=== PATIENT | male | born 1985 | race African-American/Black ===

== ENCOUNTER 2019-03-15 13:54 | Inpatient (IN) | payer OTHER ==
[2019-03-15 14:34] VITALS: BMI 25.4
--- NOTE | 2019-03-15 14:58 | HP ---
CIWA Score Nausea/Vomitin-Mild Nausea/No Vomiting Muscle Tremors: 3 Anxiety: 3 Agitation: 1-Slight > Activity Paroxysmal Sweats: 1-Minimal Palms Moist Orientation: 0-Oriented Tacttile Disturbances: 2-Mild Itch/Numbness/Burn Auditory Disturbances: 0-None Visual Disturbances: 0-None Headache: 3-Moderate CIWA-Ar Total Score: 14 - Admission Criteria OASAS Guidelines: Admission for Medically Managed Detox: Requires at least one of the followin. CIWA greater than 12 2. Seizures within the past 24 hours 3. Delirium tremens within the past 24 hours 4. Hallucinations within the past 24 hours 5. Acute intervention needed for co occurring medical disorder 6. Acute intervention needed for co occurring psychiatric disorder 7. Severe withdrawal that cannot be handled at a lower level of care (continued vomiting, continued diarrhea, abnormal vital signs) requiring intravenous medication and/or fluids 8. Admitting History and Physical - Admission History Source: Patient Limitations to Obtaining History: No Limitations - Past Medical History Psych: Yes: Anxiety, Depression - Past Surgical History Past Surgical History: Yes: None - Smoking History Smoking history: Current every day smoker Have you smoked in the past 12 months: Yes Aproximately how many cigarettes per day: 10 - Alcohol/Substance Use Hx Alcohol Use: Yes Number of Drinks Daily: 24 (beers) History of Substance Use: reports: Marijuana Date of Last Use: 03/14/19 (PCP) - Social History Usual Living Arrangement: Yes: Other (Homeless) Do you think of yourself as: Declined to answer ADL: Independent History of Recent Travel: No Admission ROS [facility] Chief Complaint: ETOH withdrawal symptoms Allergies/Adverse Reactions: Allergies Allergy/AdvReac Type Severity Reaction Status Date / Time No Known Allergies Allergy Verified 03/15/19 14:25 History of Present Illness: Patient presents to [facility] for ETOH withdrawal symptoms. Patient admitted to [facility] in 09/2014. He reports he started drinking alcohol at age 11, Marijuana at age 10 and PCP 25. Drinks 24 (12) oz beers daily with last drink this morning. Has hx of blackouts, binge drinking, tremors and eye openers. Denies hx of seizures. States he smokes 6-12 blunts and dust daily, with last use last night. Denies PMH. Reports feeling anxious and depressed- denies SI/HI at this time. + suicide attempt in 2017 by excessive drinking. Patient also reports that he was in [facility] ED last night for c/o muscle spasms. Patient does not have discharge papers stating " I threw them out". Quality Control Head called [facility] ED x 2 and was left on hold for 15 minutes. Patient denies chest pain, sob and dizziness and states he was not evaluated for cardiac symptoms. Dr. Avelar aware of above situation. Admitting labs and EKG ordered. On no meds GUNJAN 0.004 urine tox + THC Istop negative Exam Limitations: No Limitations - Ebola screening Have you traveled outside of the country in the last 21 days: No Have you had contact with anyone from an Ebola affected area: No Have you been sick,other than usual withdrawal symptoms: No Do you have a fever: No - Review of Systems Constitutional: Changes in sleep, Unexplained wgt Loss EENT: reports: Nose Congestion Respiratory: reports: Cough, SOB with Exertion Cardiac: reports: No Symptoms Reported GI: reports: Nausea : reports: No Symptoms Reported Musculoskeletal: reports: Back Pain, Joint Pain, Muscle Pain Integumentary: reports: Dryness Neuro: reports: Headache, Numbness, Tingling, Tremors Endocrine: reports: Unexplained Weight Loss Hematology: reports: No Symptoms Reported Psychiatric: reports: Orientated x3, Anxious, Depressed Patient History - Patient Medical History Hx Anemia: No Hx Asthma: No Hx Chronic Obstructive Pulmonary Disease (COPD): No Hx Cancer: No Hx Cardiac Disorders: No Hx Congestive Heart Failure: No Hx Hypertension: No Hx Hypercholesterolemia: No Hx Pacemaker: No HX Cerebrovascular Accident: No Hx Seizures: No Hx Dementia: No Hx Diabetes: No Hx Gastrointestinal Disorders: No Hx Liver Disease: No Hx Genitourinary Disorders: No Hx Sexually Transmitted Disorders: No Hx Renal Disease (ESRD): No Hx Thyroid Disease: No Hx Human Immunodeficiency Virus (HIV): No Hx Hepatitis C: No Hx Depression: Yes Hx Suicide Attempt: No Hx Bipolar Disorder: No Hx Schizophrenia: No - Patient Surgical History Past Surgical History: No Anesthesia Reaction: No - PPD History Previous Implant?: Yes Documented Results: Negative w/o proof PPD to be Administered?: Yes - Smoking Cessation Smoking history: Current every day smoker Have you smoked in the past 12 months: Yes Aproximately how many cigarettes per day: 10 Hx Chewing Tobacco Use: No Initiated information on smoking cessation: Yes 'Breaking Loose' booklet given: 03/15/19 - Substance & Tx. History Hx Alcohol Use: Yes Hx Substance Use: Yes Substance Use Type: Alcohol, Marijuana Hx Substance Use Treatment: Yes - Substances abused Alcohol Substance route: Oral Frequency: Daily Amount used: 24 cans of beers Age of first use: 11 Date of last use: 03/15/19 Marijuana/Hashish Substance route: Smoking Frequency: Daily Amount used: 6-12 blunts Age of first use: 10 Date of last use: 03/15/19 PCP Substance route: Smoking Frequency: Daily Amount used: $20-30 Age of first use: 33 Date of last use: 03/14/19 Admission Physical Exam [facility] - Vital Signs Vital Signs: Vital Signs - 24 hr 03/15/19 14:27 Temperature 98.3 F Pulse Rate 95 H Respiratory 20 Rate Blood Pressure 132/88 - Physical General Appearance: Yes: Disheveled, Tremorous, Anxious HEENTM: Yes: EOMI, Hearing grossly Normal, Normocephalic, BRIGIDO, Other (poor dentition) Respiratory: Yes: Chest Non-Tender, Lungs Clear, Normal Breath Sounds, No Respiratory Distress, No Accessory Muscle Use Neck: Yes: No masses,lesions,Nodules, Supple, Trachea in good position Breast: Yes: Breast Exam Deferred Cardiology: Yes: Regular Rhythm, Regular Rate, S1, S2 Abdominal: Yes: Normal Bowel Sounds, Non Tender, Soft Genitourinary: Yes: Within Normal Limits Back: Yes: Normal Inspection, Muscle Spasm Musculoskeletal: Yes: full range of Motion, Gait Steady, Back pain, Muscle Pain Extremities: Yes: Normal Inspection, Normal Range of Motion, Non-Tender, Other ( bilateral feet callouses) Neurological: Yes: printing sign machine operator II-XII NML intact, Fully Oriented, Alert, Motor Strength 5/5, Normal Response, Depressed Affect Integumentary: Yes: Normal Color, Dry, Warm, Other (callouses on feet) Lymphatic: Yes: Within Normal Limits - Diagnostic (1) Alcohol dependence with withdrawal, uncomplicated Current Visit: Yes Status: Acute (2) Marijuana dependence Current Visit: Yes Status: Chronic (3) Tobacco dependence Current Visit: Yes Status: Chronic (4) PCP dependence Current Visit: Yes Status: Chronic Cleared for Admission [facility] - Detox or Rehab [facility] Level of Care: Medically Managed Detox Regimen/Protocol: Librium Breathalyzer - Breathalyzer Breathalyzer: 0.004 Urine Drug Screen - Results Drug screen NEGATIVE: No Urine drug screen results: THC-Marijuana (PCP) Inpatient Rehab Admission - Rehab Decision to Admit Inpatient rehab admission?: No
[2019-03-15] MEDS ORDERED: BISMUTH SUBSALICYLATE 524 MG/30 ML UD PO PRN (15:12)
[2019-03-15] MEDS ORDERED: hydrOXYzine PAMOATE 25 MG CAPSULE (FP) PO PRN (15:12)
[2019-03-15] MEDS ORDERED: ACETAMINOPHEN 325 MG TABLET (FP) PO PRN ×2 (15:12)
[2019-03-15] MEDS ORDERED: MAG HYDROX/AL HYDROX/SIMETH 30 ML UNIT-DOSE CUP PO PRN (15:12)
[2019-03-15] MEDS ORDERED: MAGNESIUM CITRATE 300 ML BOTTLE PO PRN (15:12)
[2019-03-15] MEDS ORDERED: MENTHOL/PHENOL 1 EACH UD MM PRN (15:12)
[2019-03-15] MEDS ORDERED: IBUPROFEN 400 MG TABLET (FP) PO PRN (15:12)
[2019-03-15] MEDS ORDERED: ONDANSETRON *ODT* 4 MG TABLET SL PRN (15:12)
[2019-03-15] MEDS ORDERED: P-EPHED 60MG/TRIPROLIDI 2.5MG TABLET PO PRN (15:12)
[2019-03-15] MEDS ORDERED: METHOCARBAMOL 500 MG TABLET PO PRN (15:12)
[2019-03-15] MEDS ORDERED: MAGNESIUM HYDROX 2400MG/30ML ORAL SUSPENSION 30 ML CUP PO PRN (15:12)
[2019-03-15] MEDS ORDERED: guaiFENesin 200 MG/10 ML 10 ML UNIT-DOSE CUPS PO PRN (15:12)
[2019-03-15] MEDS: chlordiazePOXIDE HCL 10 MG CAPSULE PO PRN (17:03)
[2019-03-15] MEDS: chlordiazePOXIDE HCL 25 MG CAPSULE PO SCH (21:10)
[2019-03-15] MEDS: MELATONIN 5 MG TABLETS PO PRN (21:10)
[2019-03-15] MEDS: NICOTINE POLACRILEX 2 MG GUM BUC PRN (21:39)
[2019-03-15] MEDS: THIAMINE HCL 100 MG TABLET (FP) PO SCH (21:41)
[2019-03-16] MEDS: chlordiazePOXIDE HCL 25 MG CAPSULE PO SCH ×3 (05:43→23:07)
--- NOTE | 2019-03-16 09:01 | EKG ---
Test Reason : Blood Pressure : / mmHG Vent. Rate : 084 BPM Atrial Rate : 084 BPM P-R Int : 128 ms QRS Dur : 082 ms QT Int : 352 ms P-R-T Axes : 058 000 033 degrees QTc Int : 415 ms NORMAL SINUS RHYTHM NORMAL ECG NO PREVIOUS ECGS AVAILABLE Confirmed by JOSEF JACKSON MD ([id number]) on 03/16/2019 9:01:30 AM Referred By: Confirmed By:JOSEF JACKSON MD
[2019-03-16 09:57] LABS: HEMATOCRIT 47.7 % (35.4-49); MCH 33.9 pg (25.7-33.7); MCHC 33.5 g/dl (32.0-35.9); MEAN CELL VOLUME 101.3 fl (80-96); MEAN PLT VOLUME 7.7 fl (7.5-11.1); PLATELET COUNT 169 K/MM3 (134-434); RBC 4.71 M/mm3 (4.00-5.60); WHITE BLOOD COUNT 3.9 K/mm3 (4.0-10.0)
[2019-03-16] MEDS: NICOTINE 21 MG/24 HOURS TOPICAL PATCH TD SCH (09:57)
[2019-03-16] MEDS: PRENATAL VITAMINS W/ FOLIC ACID TABLET (FP) PO SCH (09:57)
[2019-03-16] MEDS: NICOTINE POLACRILEX 2 MG GUM BUC PRN ×2 (09:57→18:00)
[2019-03-16 09:59] LABS: ALBUMIN 3.4 g/dl (3.4-5.0); BILIRUBIN,TOTAL 0.4 mg/dL (0.2-1); BLOOD UREA NITROGEN 13.2 mg/dL (7-18); CALCIUM 8.6 mg/dL (8.5-10.1); CREATININE 1.1 mg/dL (0.55-1.3); TOT PROT 6.8 g/dl (6.4-8.2)
[2019-03-16] MEDS ORDERED: AMMONIUM LACTATE 12% LOTION 225 GM BOTTLE TP PRN (13:59)
--- NOTE | 2019-03-16 13:59 | PN ---
S CIWA - CIWA Score Nausea/Vomitin-No Nausea/No Vomiting Muscle Tremors: 4-Moderate,w/Arms Extend Anxiety: 4-Mod. Anxious/Guarded Agitation: 0-Normal Activity Paroxysmal Sweats: 1-Minimal Palms Moist Orientation: 0-Oriented Tacttile Disturbances: 0-None Auditory Disturbances: 0-None Visual Disturbances: 0-None Headache: 0-None Present CIWA-Ar Total Score: 9 BHS Progress Note (SOAP) Subjective: No appetite, shakes and sweats Dry feet Objective: 03/16/19 13:58 Vital Signs Temperature 99.7 F H 03/16/19 13:12 Pulse Rate 85 03/16/19 13:12 Respiratory Rate 18 03/16/19 13:12 Blood Pressure 126/80 03/16/19 13:12 O2 Sat by Pulse Oximetry (%) Laboratory Tests 03/16/19 03/16/19 03/16/19 07:15 07:15 07:15 WBC 3.9 L RBC 4.71 Hgb 16.0 Hct 47.7 MCV 101.3 H MCH 33.9 H MCHC 33.5 RDW 14.0 Plt Count 169 MPV 7.7 Sodium 137 Potassium 4.0 Chloride 108 H Carbon Dioxide 26 Anion Gap 3 L BUN 13.2 Creatinine 1.1 Est GFR (CKD-EPI)AfAm 100.27 Est GFR (CKD-EPI)NonAf 86.51 Random Glucose 90 Calcium 8.6 Total Bilirubin 0.4 AST 18 ALT 24 Alkaline Phosphatase 47 Total Protein 6.8 Albumin 3.4 RPR Titer Nonreactive HIV 1&2 Antibody Screen HIV P24 Antigen 03/16/19 07:15 WBC RBC Hgb Hct MCV MCH MCHC RDW Plt Count MPV Sodium Potassium Chloride Carbon Dioxide Anion Gap BUN Creatinine Est GFR (CKD-EPI)AfAm Est GFR (CKD-EPI)NonAf Random Glucose Calcium Total Bilirubin AST ALT Alkaline Phosphatase Total Protein Albumin RPR Titer HIV 1&2 Antibody Screen Negative HIV P24 Antigen Negative 03/16/19 13:58 Labs noted Aaox3 Ambulating No acute distress Assessment: 03/16/19 13:58 Withdrawals present Plan: Ammonia lactate ordered Encouraged hydration Detox continues
--- NOTE | 2019-03-16 17:17 | CONSULT ---
[facility] Psychiatric Consult - Data Date of interview: 03/16/19 Admission source: [facility] Identifying data: First visit to [facility] and admission to [address] [place] [address] for this 33 y/o AA male self-referred for detoxification treatment. PARAS issues : alcohol, phencyclidine, cannabis,nicotine. Patient is single, father of two, homeless, unemployed and supported on welfare. Substance Abuse History: Discussed with the patient. Details in current [facility] report as follows : Smoking history: Current every day smoker. Have you smoked in the past 12 months: Yes. Aproximately how many cigarettes per day: 10. Hx Chewing Tobacco Use: No. Initiated information on smoking cessation: Yes. ' Breaking Loose' booklet given: 03/15/19. - Substance & Tx. History. Hx Alcohol Use: Yes. Hx Substance Use: Yes. Substance Use Type: Alcohol, Marijuana. Hx Substance Use Treatment: Yes. - Substances abused. Alcohol. Substance route: Oral. Frequency: Daily. Amount used: 24 cans of beers. Age of first use: 11. Date of last use: 03/15/19. Marijuana/Hashish. Substance route: Smoking. Frequency: Daily. Amount used: 6-12 blunts. Age of first use: 10. Date of last use: 03/15/19. PCP. Substance route: Smoking. Frequency: Daily. Amount used: $20-30. Age of first use: 33. Date of last use: 03/14/19 Medical History: Patient endorses good general health. Psychiatric History: Patient denies history of psychiatric hospitalizations, OPD care or suicide attempts. Physical/Sexual Abuse/Trauma History: Patient denies. Additional Comment: Urine drug screen results: THC-Marijuana (PCP). Noted. Mental Status Exam - Mental Status Exam Alert and Oriented to: Time, Place, Person Cognitive Function: Good Patient Appearance: Unkempt, Disheveled Mood: Withdrawn Affect: Mood Congruent, Normal Range Patient Behavior: Fatigued, Cooperative Speech Pattern: Clear, Appropriate Voice Loudness: Normal Thought Process: Intact, Goal Oriented Thought Disorder: Not Present Hallucinations: Denies Suicidal Ideation: Denies Homicidal Ideation: Denies Insight/Judgement: Poor Sleep: Well Appetite: Good Gait/Station: Normal (not observed; patient did not get out of bed) Psychiatric Findings - Problem List ([place] 1, 2,3) (1) Alcohol dependence with withdrawal, uncomplicated Current Visit: Yes Status: Acute (2) Marijuana dependence Current Visit: Yes Status: Chronic (3) PCP dependence Current Visit: Yes Status: Chronic (4) Nicotine dependence Current Visit: Yes Status: Chronic - Initial Treatment Plan Initial Treatment Plan: Psychoeducation. Sleep hygiene. Detoxification. MAT services explained to patient. AA meetings. Observation.
[2019-03-16] MEDS: chlordiazePOXIDE HCL 10 MG CAPSULE PO PRN (17:58)
[2019-03-16] MEDS: THIAMINE HCL 100 MG TABLET (FP) PO SCH (23:07)
[2019-03-16] MEDS: MELATONIN 5 MG TABLETS PO PRN (23:07)
[2019-03-17] MEDS: chlordiazePOXIDE 5 MG CAPSULE PO SCH ×3 (05:29→22:15)
[2019-03-17] MEDS: PRENATAL VITAMINS W/ FOLIC ACID TABLET (FP) PO SCH (10:55)
[2019-03-17] MEDS: NICOTINE 21 MG/24 HOURS TOPICAL PATCH TD SCH (10:56)
[2019-03-17] MEDS: NICOTINE POLACRILEX 2 MG GUM BUC PRN ×2 (10:57→17:55)
[2019-03-17 12:26] LABS: URINE APPEARANCE CLEAR; URINE BILIRUBIN NEGATIVE (NEGATIVE); URINE COLOR YELLOW; URINE GLUCOSE (UA) NEGATIVE (NEGATIVE); URINE KETONE NEGATIVE (NEGATIVE); URINE LEUK ESTERASE NEGATIVE (NEGATIVE); URINE NITRITE NEGATIVE (NEGATIVE); URINE PROTEIN NEGATIVE (NEGATIVE)
--- NOTE | 2019-03-17 14:42 | PN ---
S CIWA - CIWA Score Nausea/Vomitin-No Nausea/No Vomiting Muscle Tremors: 2 Anxiety: 2 Agitation: 1-Slight > Activity Paroxysmal Sweats: 2 Orientation: 0-Oriented Tacttile Disturbances: 0-None Auditory Disturbances: 0-None Visual Disturbances: 0-None Headache: 0-None Present CIWA-Ar Total Score: 7 BHS Progress Note (SOAP) Subjective: Tremor, nausea Objective: 03/17/19 14:41 Last Vital Signs Temp Pulse Resp BP Pulse Ox 97.9 F 72 18 116/73 03/17/19 09:30 03/17/19 09:30 03/17/19 09:30 03/17/19 09:30 Laboratory Tests 03/16/19 03/16/19 03/16/19 07:15 07:15 07:15 WBC 3.9 L RBC 4.71 Hgb 16.0 Hct 47.7 MCV 101.3 H MCH 33.9 H MCHC 33.5 RDW 14.0 Plt Count 169 MPV 7.7 Sodium 137 Potassium 4.0 Chloride 108 H Carbon Dioxide 26 Anion Gap 3 L BUN 13.2 Creatinine 1.1 Est GFR (CKD-EPI)AfAm 100.27 Est GFR (CKD-EPI)NonAf 86.51 Random Glucose 90 Calcium 8.6 Total Bilirubin 0.4 AST 18 ALT 24 Alkaline Phosphatase 47 Total Protein 6.8 Albumin 3.4 Urine Color Urine Appearance Urine pH Ur Specific [place] Urine Protein Urine Glucose (UA) Urine Ketones Urine Blood Urine Nitrite Urine Bilirubin Urine Urobilinogen Ur Leukocyte Esterase RPR Titer Nonreactive HIV 1&2 Antibody Screen HIV P24 Antigen 03/16/19 03/17/19 07:15 09:00 WBC RBC Hgb Hct MCV MCH MCHC RDW Plt Count MPV Sodium Potassium Chloride Carbon Dioxide Anion Gap BUN Creatinine Est GFR (CKD-EPI)AfAm Est GFR (CKD-EPI)NonAf Random Glucose Calcium Total Bilirubin AST ALT Alkaline Phosphatase Total Protein Albumin Urine Color Yellow Urine Appearance Clear Urine pH 8.0 Ur Specific [place] 1.019 Urine Protein Negative Urine Glucose (UA) Negative Urine Ketones Negative Urine Blood Negative Urine Nitrite Negative Urine Bilirubin Negative Urine Urobilinogen 1.0 Ur Leukocyte Esterase Negative RPR Titer HIV 1&2 Antibody Screen Negative HIV P24 Antigen Negative Labs reviewed Assessment: 03/17/19 14:41 Withdrawal sxs Plan: Continue detox Encouraged PO water intake
[2019-03-17] MEDS: chlordiazePOXIDE HCL 10 MG CAPSULE PO PRN (17:55)
[2019-03-17] MEDS: THIAMINE HCL 100 MG TABLET (FP) PO SCH (22:15)
[2019-03-17] MEDS: MELATONIN 5 MG TABLETS PO PRN (22:15)
[2019-03-18] MEDS ORDERED: chlordiazePOXIDE HCL 10 MG CAPSULE PO PRN
[2019-03-18] MEDS: chlordiazePOXIDE HCL 10 MG CAPSULE PO SCH ×3 (06:06→21:58)
[2019-03-18] MEDS: NICOTINE 21 MG/24 HOURS TOPICAL PATCH TD SCH (10:17)
[2019-03-18] MEDS: PRENATAL VITAMINS W/ FOLIC ACID TABLET (FP) PO SCH (10:17)
--- NOTE | 2019-03-18 11:13 | PN ---
S CIWA - CIWA Score Nausea/Vomitin-Mild Nausea/No Vomiting Muscle Tremors: 1-None Visible, but Roll Anxiety: 2 Agitation: 2 Paroxysmal Sweats: No Perspiration Orientation: 0-Oriented Tacttile Disturbances: 1-Very Mild Itch/Numbness Auditory Disturbances: 0-None Visual Disturbances: 0-None Headache: 1-Very Mild CIWA-Ar Total Score: 8 BHS Progress Note (SOAP) Subjective: alert,irritable,anxious,interrupted sleep,pain in the right chest wall for 10 days,related to movement,unsure about trauma stated has blood in stool before but to blood now Objective: 03/18/19 11:10 Vital Signs Temperature 97.7 F 03/18/19 09:10 Pulse Rate 68 03/18/19 09:10 Respiratory Rate 16 03/18/19 09:10 Blood Pressure 126/81 03/18/19 09:10 O2 Sat by Pulse Oximetry (%) 03/18/19 11:10 Laboratory Last Values WBC 3.9 K/mm3 (4.0-10.0) L 03/16/19 07:15 RBC 4.71 M/mm3 (4.00-5.60) 03/16/19 07:15 Hgb 16.0 GM/dL (11.7-16.9) 03/16/19 07:15 Hct 47.7 % (35.4-49) 03/16/19 07:15 MCV 101.3 fl (80-96) H 03/16/19 07:15 MCH 33.9 pg (25.7-33.7) H 03/16/19 07:15 MCHC 33.5 g/dl (32.0-35.9) 03/16/19 07:15 RDW 14.0 % (11.9-15.9) 03/16/19 07:15 Plt Count 169 K/MM3 (134-434) 03/16/19 07:15 MPV 7.7 fl (7.5-11.1) 03/16/19 07:15 Sodium 137 mmol/L (136-145) 03/16/19 07:15 Potassium 4.0 mmol/L (3.5-5.1) 03/16/19 07:15 Chloride 108 mmol/L (98-107) H 03/16/19 07:15 Carbon Dioxide 26 mmol/L (21-32) 03/16/19 07:15 Anion Gap 3 MMOL/L (8-16) L 03/16/19 07:15 BUN 13.2 mg/dL (7-18) 03/16/19 07:15 Creatinine 1.1 mg/dL (0.55-1.3) 03/16/19 07:15 Est GFR (CKD-EPI)AfAm 100.27 03/16/19 07:15 Est GFR (CKD-EPI)NonAf 86.51 03/16/19 07:15 Random Glucose 90 mg/dL (74-106) 03/16/19 07:15 Calcium 8.6 mg/dL (8.5-10.1) 03/16/19 07:15 Total Bilirubin 0.4 mg/dL (0.2-1) 03/16/19 07:15 AST 18 U/L (15-37) 03/16/19 07:15 ALT 24 U/L (13-61) 03/16/19 07:15 Alkaline Phosphatase 47 U/L (45-117) 03/16/19 07:15 Total Protein 6.8 g/dl (6.4-8.2) 03/16/19 07:15 Albumin 3.4 g/dl (3.4-5.0) 03/16/19 07:15 Urine Color Yellow 03/17/19 09:00 Urine Appearance Clear 03/17/19 09:00 Urine pH 8.0 (5.0-8.0) 03/17/19 09:00 Ur Specific [place] 1.019 (1.010-1.035) 03/17/19 09:00 Urine Protein Negative (NEGATIVE) 03/17/19 09:00 Urine Glucose (UA) Negative (NEGATIVE) 03/17/19 09:00 Urine Ketones Negative (NEGATIVE) 03/17/19 09:00 Urine Blood Negative (NEGATIVE) 03/17/19 09:00 Urine Nitrite Negative (NEGATIVE) 03/17/19 09:00 Urine Bilirubin Negative (NEGATIVE) 03/17/19 09:00 Urine Urobilinogen 1.0 mg/dL (0.2-1.0) 03/17/19 09:00 Ur Leukocyte Esterase Negative (NEGATIVE) 03/17/19 09:00 RPR Titer Nonreactive (NONREACTIVE) 03/16/19 07:15 HIV 1&2 Antibody Screen Negative 03/16/19 07:15 HIV P24 Antigen Negative 03/16/19 07:15 Assessment: 03/18/19 11:11 withdrawal symptom Plan: continue detox librium regimen,chest and right ribs,advise follow up with medical provider after discharge,diet modification,avoid constipation
[2019-03-18] MEDS: NICOTINE POLACRILEX 2 MG GUM BUC PRN ×2 (12:30→18:27)
[2019-03-18] MEDS: MELATONIN 5 MG TABLETS PO PRN (22:14)
[2019-03-18] MEDS: THIAMINE HCL 100 MG TABLET (FP) PO SCH (22:14)
[2019-03-19] MEDS ORDERED: chlordiazePOXIDE HCL 10 MG CAPSULE PO ONE (05:00)
[2019-03-19 08:47] VITALS: BP 110/70; PULSE 56; TEMP 97.5
--- NOTE | 2019-03-19 09:24 | DS ---
[facility] Detox Discharge Summary Admission Date: 03/15/19 Discharge Date: 03/19/19 - History Present History: Alcohol Dependence, Cannabis Dependence - Physical Exam Results Vital Signs: Vital Signs Temperature 97.5 F L 03/19/19 05:10 Pulse Rate 56 L 03/19/19 05:10 Respiratory Rate 18 03/19/19 05:10 Blood Pressure 110/70 03/19/19 05:10 O2 Sat by Pulse Oximetry (%) Pertinent Admission Physical Exam Findings: Vital Signs Temperature 97.5 F L 03/19/19 05:10 Pulse Rate 56 L 03/19/19 05:10 Respiratory Rate 03/19/19 05:10 Blood Pressure 110/70 03/19/19 05:10 O2 Sat by Pulse Oximetry (%) Laboratory Tests 03/16/19 03/16/19 03/16/19 07:15 07:15 07:15 WBC 3.9 L RBC 4.71 Hgb 16.0 Hct 47.7 MCV 101.3 H MCH 33.9 H MCHC 33.5 RDW 14.0 Plt Count 169 MPV 7.7 Sodium 137 Potassium 4.0 Chloride 108 H Carbon Dioxide 26 Anion Gap 3 L BUN 13.2 Creatinine 1.1 Est GFR (CKD-EPI)AfAm 100.27 Est GFR (CKD-EPI)NonAf 86.51 Random Glucose 90 Calcium 8.6 Total Bilirubin 0.4 AST 18 ALT 24 Alkaline Phosphatase 47 Total Protein 6.8 Albumin 3.4 Urine Color Urine Appearance Urine pH Ur Specific [place] Urine Protein Urine Glucose (UA) Urine Ketones Urine Blood Urine Nitrite Urine Bilirubin Urine Urobilinogen Ur Leukocyte Esterase RPR Titer Nonreactive HIV 1&2 Antibody Screen HIV P24 Antigen 03/16/19 03/17/19 07:15 09:00 WBC RBC Hgb Hct MCV MCH MCHC RDW Plt Count MPV Sodium Potassium Chloride Carbon Dioxide Anion Gap BUN Creatinine Est GFR (CKD-EPI)AfAm Est GFR (CKD-EPI)NonAf Random Glucose Calcium Total Bilirubin AST ALT Alkaline Phosphatase Total Protein Albumin Urine Color Yellow Urine Appearance Clear Urine pH 8.0 Ur Specific [place] 1.019 Urine Protein Negative Urine Glucose (UA) Negative Urine Ketones Negative Urine Blood Negative Urine Nitrite Negative Urine Bilirubin Negative Urine Urobilinogen 1.0 Ur Leukocyte Esterase Negative RPR Titer HIV 1&2 Antibody Screen Negative HIV P24 Antigen Negative aaox3 ambulating acute distress - Treatment Hospital Course: Detox Protocol Followed, Detoxed Safely, Responded well, Discharged Condition Good, Rehab Referral Accepted Patient has Accepted a Rehab Referral to: pt declined rehab; referral provided - Medication Discharge Medications: Ambulatory Orders NK [No Known Home Medication] 03/15/19 - Diagnosis (1) Alcohol dependence with withdrawal, uncomplicated Current Visit: Yes Status: Chronic (2) Marijuana dependence Current Visit: Yes Status: Chronic (3) Nicotine dependence Current Visit: Yes Status: Chronic Qualifiers: Nicotine product type: cigarettes Substance use status: uncomplicated Qualified Code(s): F17.210 - Nicotine dependence, cigarettes, uncomplicated (4) PCP dependence Current Visit: Yes Status: Chronic - AMA Did Patient Leave Against Medical Advice: No
== END 2019-03-19 09:06 | disposition home or self-care (01) | DRG 775 ==
LOC: YASAS 13:54 → Y6N 16:23
PROVIDERS: ADMIT Allergy & Immunology; ATTEND Allergy & Immunology
PROC: HZ2ZZZZ Detoxification Services for Substance Abuse Treatment (ICD-10-PCS; principal; 2019-03-15)
DX: F10.230 Alcohol dependence with withdrawal, uncomplicated (principal); F16.20 Hallucinogen dependence, uncomplicated; F12.20 Cannabis dependence, uncomplicated; F17.210 Nicotine dependence, cigarettes, uncomplicated
CPT/HCPCS: 36415; 71045-TC-FY; 71101-TC-RT-FY; 80053; 81003; 85027; 86593; 87389; 93005; 93010

== ENCOUNTER 2021-07-20 20:35 | Inpatient (IN) | payer OTHER ==
[2021-07-20 21:13] VITALS: BMI 23.3
[2021-07-20] MEDS ORDERED: MAG HYDROX/AL HYDROX/SIMETH 30 ML UNIT-DOSE CUP PO PRN (21:58)
[2021-07-20] MEDS ORDERED: METHOCARBAMOL 500 MG TABLET PO PRN (21:58)
[2021-07-20] MEDS ORDERED: LOPERAMIDE HCL 2 MG CAPSULE PO PRN (21:58)
[2021-07-20] MEDS ORDERED: ACETAMINOPHEN 325 MG TABLET (FP) PO PRN ×2 (21:58)
[2021-07-20] MEDS ORDERED: NALOXONE HCL 0.4 MG/ML VIAL IM PRN (21:58)
[2021-07-20] MEDS ORDERED: IBUPROFEN 400 MG TABLET (FP) PO PRN (21:58)
[2021-07-20] MEDS ORDERED: BENZOCAINE/MENTHOL (CHLORASEPTIC ) LOZENGE MM PRN (21:58)
[2021-07-20] MEDS ORDERED: MAGNESIUM CITRATE 300 ML BOTTLE PO PRN (21:58)
[2021-07-20] MEDS ORDERED: BISMUTH SUBSALICYLATE 524 MG/30 ML PO PRN (21:58)
[2021-07-20] MEDS ORDERED: DICYCLOMINE HCL 10 MG CAPSULE PO PRN (21:58)
[2021-07-20] MEDS ORDERED: MAGNESIUM HYDROX 2400MG/30ML ORAL SUSPENSION 30 ML CUP PO PRN (21:58)
[2021-07-20] MEDS ORDERED: ONDANSETRON *ODT* 4 MG TABLET SL PRN (21:58)
[2021-07-21] MEDS: hydrOXYzine PAMOATE 25 MG CAPSULE (FP) PO PRN (01:15)
[2021-07-21] MEDS: MELATONIN 5 MG TABLETS PO SCH ×2 (01:16→22:15)
[2021-07-21] MEDS: THIAMINE HCL 100 MG TABLET (FP) PO SCH ×2 (01:17→22:15)
[2021-07-21] MEDS ORDERED: chlordiazePOXIDE HCL 25 MG CAPSULE PO PRN (09:01)
[2021-07-21 10:14] LABS: HEMATOCRIT 46.2 % (35.4-49); HEMOGLOBIN 15.7 GM/dL (11.7-16.9); MCH 33.3 pg (25.7-33.7); MEAN CELL VOLUME 98.1 fl (80-96); MEAN PLT VOLUME 6.8 fl (7.5-11.1); PLATELET COUNT 258 10^3/uL (134-434); RBC 4.71 M/mm3 (4.00-5.60); RDW 13.5 % (11.9-15.9); WHITE BLOOD COUNT 4.5 K/mm3 (4.0-10.0)
[2021-07-21] MEDS: PRENATAL VITAMINS W/ FOLIC ACID TABLET (FP) PO SCH (10:18)
[2021-07-21] MEDS: chlordiazePOXIDE HCL 25 MG CAPSULE PO SCH ×3 (10:20→22:15)
[2021-07-21 10:33] LABS: ALBUMIN 3.4 g/dl (3.4-5.0)
[2021-07-21 10:35] LABS: BLOOD UREA NITROGEN 10.6 mg/dL (7-18); CALCIUM 8.8 mg/dL (8.5-10.1)
[2021-07-21 10:39] LABS: BILIRUBIN,TOTAL 0.7 mg/dL (0.2-1); TOT PROT 6.7 g/dl (6.4-8.2)
[2021-07-21 11:16] LABS: HIV INTERPRETATION NEGATIVE (NEGATIVE)
[2021-07-21] MEDS: LITHIUM CARBONATE 300 MG CAPSULE PO SCH (22:15)
[2021-07-21] MEDS: QUEtiapine FUMARATE 100 MG TABLET (FP) PO SCH (22:15)
[2021-07-22 00:32] LABS: URINE APPEARANCE CLEAR; URINE BILIRUBIN NEGATIVE (NEGATIVE); URINE COLOR YELLOW; URINE GLUCOSE (UA) NEGATIVE (NEGATIVE); URINE KETONE NEGATIVE (NEGATIVE); URINE LEUK ESTERASE NEGATIVE (NEGATIVE); URINE NITRITE NEGATIVE (NEGATIVE); URINE PROTEIN NEGATIVE (NEGATIVE); URINE UROBILINOGEN 0.2 mg/dL (0.2-1.0)
[2021-07-22] MEDS: chlordiazePOXIDE HCL 25 MG CAPSULE PO SCH ×4 (06:06→22:14)
[2021-07-22] MEDS: LITHIUM CARBONATE 300 MG CAPSULE PO SCH ×2 (10:23→22:14)
[2021-07-22] MEDS: PRENATAL VITAMINS W/ FOLIC ACID TABLET (FP) PO SCH (10:23)
[2021-07-22] MEDS: NICOTINE 10 MG CARTRIDGE (INHALER) IH PRN ×2 (10:26→22:29)
[2021-07-22 16:10] LABS: SARS-CoV-2 NAA Not Detected (Not Detected)
[2021-07-22] MEDS: THIAMINE HCL 100 MG TABLET (FP) PO SCH (22:14)
[2021-07-22] MEDS: MELATONIN 5 MG TABLETS PO SCH (22:14)
[2021-07-22] MEDS: QUEtiapine FUMARATE 100 MG TABLET (FP) PO SCH (22:14)
[2021-07-23] MEDS: chlordiazePOXIDE HCL 25 MG CAPSULE PO SCH ×4 (07:11→22:07)
[2021-07-23] MEDS: LITHIUM CARBONATE 300 MG CAPSULE PO SCH ×2 (10:08→22:06)
[2021-07-23] MEDS: PRENATAL VITAMINS W/ FOLIC ACID TABLET (FP) PO SCH (10:08)
[2021-07-23] MEDS: NICOTINE 10 MG CARTRIDGE (INHALER) IH PRN ×2 (13:26→22:22)
[2021-07-23] MEDS: QUEtiapine FUMARATE 100 MG TABLET (FP) PO SCH (22:06)
[2021-07-23] MEDS: MELATONIN 5 MG TABLETS PO SCH (22:06)
[2021-07-23] MEDS: THIAMINE HCL 100 MG TABLET (FP) PO SCH (22:07)
[2021-07-24] MEDS ORDERED: chlordiazePOXIDE HCL 10 MG CAPSULE PO PRN
[2021-07-24] MEDS: chlordiazePOXIDE HCL 10 MG CAPSULE PO SCH ×4 (06:33→22:24)
[2021-07-24] MEDS: LITHIUM CARBONATE 300 MG CAPSULE PO SCH ×2 (10:37→22:24)
[2021-07-24] MEDS: PRENATAL VITAMINS W/ FOLIC ACID TABLET (FP) PO SCH (10:37)
[2021-07-24] MEDS: NICOTINE 10 MG CARTRIDGE (INHALER) IH PRN ×2 (11:39→21:10)
[2021-07-24] MEDS: THIAMINE HCL 100 MG TABLET (FP) PO SCH (22:24)
[2021-07-24] MEDS: MELATONIN 5 MG TABLETS PO SCH (22:24)
[2021-07-24] MEDS: QUEtiapine FUMARATE 100 MG TABLET (FP) PO SCH (22:24)
[2021-07-25] MEDS: chlordiazePOXIDE HCL 10 MG CAPSULE PO SCH ×2 (06:04→17:55)
[2021-07-25] MEDS: NICOTINE 10 MG CARTRIDGE (INHALER) IH PRN ×3 (09:54→22:17)
[2021-07-25] MEDS: PRENATAL VITAMINS W/ FOLIC ACID TABLET (FP) PO SCH (09:54)
[2021-07-25] MEDS: LITHIUM CARBONATE 300 MG CAPSULE PO SCH ×2 (09:54→22:15)
[2021-07-25] MEDS: hydrOXYzine PAMOATE 25 MG CAPSULE (FP) PO PRN ×2 (17:56→22:16)
[2021-07-25] MEDS: MELATONIN 5 MG TABLETS PO SCH (22:15)
[2021-07-25] MEDS: QUEtiapine FUMARATE 100 MG TABLET (FP) PO SCH (22:15)
[2021-07-25] MEDS: THIAMINE HCL 100 MG TABLET (FP) PO SCH (22:15)
[2021-07-26] MEDS ORDERED: chlordiazePOXIDE HCL 10 MG CAPSULE PO ONE (05:00)
[2021-07-26] MEDS: NICOTINE 10 MG CARTRIDGE (INHALER) IH PRN (08:29)
[2021-07-26 08:47] VITALS: BP 119/80; PULSE 69; TEMP 98.6
== END 2021-07-26 09:52 | disposition home or self-care (01) | DRG 775 ==
LOC: YASAS 20:35 → Y3N 23:23
PROVIDERS: ADMIT Allergy & Immunology; ATTEND Surgery
PROC: HZ2ZZZZ Detoxification Services for Substance Abuse Treatment (ICD-10-PCS; principal; 2021-07-20)
DX: F10.230 Alcohol dependence with withdrawal, uncomplicated (principal); F16.20 Hallucinogen dependence, uncomplicated; F12.20 Cannabis dependence, uncomplicated; F17.210 Nicotine dependence, cigarettes, uncomplicated; F31.81 Bipolar II disorder; Z28.310 Unvaccinated for COVID-19; Z56.0 Unemployment, unspecified; Z59.00 Homelessness unspecified
CPT/HCPCS: 36415; 80053; 80178; 81003; 85027; 86780; 87389; 87811; C9803-CS; U0003; U0005

== ENCOUNTER 2021-09-07 23:08 | Inpatient (IN) | payer OTHER ==
[2021-09-08 04:19] VITALS: BMI 25.5
[2021-09-08] MEDS ORDERED: IBUPROFEN 400 MG TABLET (FP) PO PRN (04:21)
[2021-09-08] MEDS ORDERED: MAG HYDROX/AL HYDROX/SIMETH 30 ML UNIT-DOSE CUP PO PRN (04:21)
[2021-09-08] MEDS ORDERED: DICYCLOMINE HCL 10 MG CAPSULE PO PRN (04:21)
[2021-09-08] MEDS ORDERED: MAGNESIUM CITRATE 300 ML BOTTLE PO PRN (04:21)
[2021-09-08] MEDS ORDERED: LOPERAMIDE HCL 2 MG CAPSULE PO PRN (04:21)
[2021-09-08] MEDS ORDERED: BENZOCAINE/MENTHOL (CHLORASEPTIC ) LOZENGE MM PRN (04:21)
[2021-09-08] MEDS ORDERED: BISMUTH SUBSALICYLATE 524 MG/30 ML PO PRN (04:21)
[2021-09-08] MEDS ORDERED: IBUPROFEN 600 MG TABLET (FP) PO PRN (04:21)
[2021-09-08] MEDS ORDERED: ONDANSETRON *ODT* 4 MG TABLET SL PRN (04:21)
[2021-09-08] MEDS ORDERED: ACETAMINOPHEN 325 MG TABLET (FP) PO PRN ×2 (04:21)
[2021-09-08] MEDS ORDERED: METHOCARBAMOL 500 MG TABLET PO PRN (04:21)
[2021-09-08] MEDS ORDERED: MAGNESIUM HYDROX 2400MG/30ML ORAL SUSPENSION 30 ML CUP PO PRN (04:21)
[2021-09-08] MEDS: PRENATAL VITAMINS W/ FOLIC ACID TABLET (FP) PO SCH (10:41)
[2021-09-08] MEDS: NICOTINE 14 MG/24 HOURS TOPICAL PATCH TD SCH (10:41)
[2021-09-08] MEDS: MELATONIN 5 MG TABLETS PO SCH (22:55)
[2021-09-08] MEDS: THIAMINE HCL 100 MG TABLET (FP) PO SCH (22:55)
[2021-09-09] MEDS: NICOTINE 10 MG CARTRIDGE (INHALER) IH PRN ×3 (10:25→22:46)
[2021-09-09] MEDS: NICOTINE 14 MG/24 HOURS TOPICAL PATCH TD SCH (10:26)
[2021-09-09] MEDS: PRENATAL VITAMINS W/ FOLIC ACID TABLET (FP) PO SCH (10:26)
[2021-09-09 14:24] LABS: HEMATOCRIT 43.5 % (35.4-49); HEMOGLOBIN 14.6 GM/dL (11.7-16.9); MCH 33.2 pg (25.7-33.7); MCHC 33.6 g/dl (32.0-35.9); MEAN PLT VOLUME 7.2 fl (7.5-11.1); PLATELET COUNT 153 10^3/uL (134-434); RDW 14.4 % (11.9-15.9); WHITE BLOOD COUNT 3.6 K/mm3 (4.0-10.0)
[2021-09-09 14:51] LABS: ALBUMIN 3.4 g/dl (3.4-5.0); BLOOD UREA NITROGEN 12.9 mg/dL (7-18); CALCIUM 8.7 mg/dL (8.5-10.1)
[2021-09-09 14:56] LABS: BILIRUBIN,TOTAL 0.3 mg/dL (0.2-1); TOT PROT 6.4 g/dl (6.4-8.2)
[2021-09-09] MEDS: MELATONIN 5 MG TABLETS PO SCH (22:45)
[2021-09-09] MEDS: THIAMINE HCL 100 MG TABLET (FP) PO SCH (22:45)
[2021-09-10 08:48] VITALS: BP 114/63; PULSE 62; TEMP 98.3
== END 2021-09-10 10:42 | disposition home or self-care (01) | DRG 775 ==
LOC: YASAS 23:08 → Y3N 09-08 04:22
PROVIDERS: ADMIT Allergy & Immunology; ATTEND Allergy & Immunology
PROC: HZ2ZZZZ Detoxification Services for Substance Abuse Treatment (ICD-10-PCS; principal; 2021-09-08)
DX: F10.230 Alcohol dependence with withdrawal, uncomplicated (principal); F16.20 Hallucinogen dependence, uncomplicated; F12.20 Cannabis dependence, uncomplicated; F17.210 Nicotine dependence, cigarettes, uncomplicated; F31.81 Bipolar II disorder; F19.24 Other psychoactive substance dependence with psychoactive substance-induced mood disorder; M54.50 Low back pain, unspecified; G89.29 Other chronic pain; Z28.310 Unvaccinated for COVID-19; Z91.19 Patient's noncompliance with other medical treatment and regimen
CPT/HCPCS: 36415; 80053; 85027; 86780; 93005; 93010; C9803-CS; U0003; U0005